=== PATIENT | female | born 1955 ===

== ENCOUNTER → 2016-09-25 | Outpatient (CLI) | payer OTHER | LOC: COL.VAS 13:54 | DX: R00.2 Palpitations (principal); R94.31 Abnormal electrocardiogram [ECG] [EKG]; R07.89 Other chest pain; R60.0 Localized edema ==

== ENCOUNTER 2023-09-16 22:44 | Emergency (ER) | payer MEDICARE, OTHER ==
[~2023-09-16] VITALS: Ht 170.2 cm; Wt 101.8 kg
[~2023-09-16 22:44] MED LIST: ASPIRIN 81M81 MG/TA2 PO; B-12 500 MCG PO; MASON NATURAL2000 IU PO; NITRO-DUR0.2 MG/PAT TD; PRINIVIL2.5 MG PO; SYNTHROID0.075 MG/T PO; TOPROL XL 50MG50 MG PO; VITAMIN C500 MG PO
[2023-09-16 23:08] LABS: BASO % 0.4 % (0.0-2.0); EOS # 0.2 K/mm3 (0.0-0.7); EOS % 2.6 % (0.0-4.0); GRAN # 4.4 K/mm3 (1.4-6.5); GRAN % 62.2 % (42.2-75.2); HEMATOCRIT 45.4 % (37.0-47.0); HEMOGLOBIN 14.9 g/dl (12.5-16.0); LYMPH # 1.8 K/mm3 (1.2-3.4); LYMPH % 25.6 % (20.0-51.0); MEAN CELL VOLUME 95 fl (80.0-100.0); MEAN CORPUSCULAR HEMOGLOBIN 31 pg (27-31); MEAN CORPUSCULAR HGB CONC 33 g/dl (33.0-37.0); MEAN PLATELET VOLUME 10.1 fl (7.4-10.4); MONO # 0.6 K/mm3 (0.1-0.6); MONO % 9.1 % (1.7-9.3); PLATELET COUNT 196 K/mm3 (130-400); RED BLOOD COUNT 4.77 M/mm3 (4.10-5.30); REDCELL DISTRIBUTION WIDTH-CV 14.2 % (11.5-14.5)
[2023-09-16 23:23] LABS: ALANINE AMINOTRANSFERASE 16 U/L (0-55); ALBUMIN 3.8 g/dL (3.4-4.8); ALKALINE PHOSPHATASE 103 U/L (40-150); ANION GAP 12 mmol/L (7-16); AST,SGOT 21 U/L (5-34); BILIRUBIN,TOTAL 0.4 mg/dL (0.2-1.2); BLOOD UREA NITROGEN 26 mg/dL (10-20); C-REACTIVE PROTEIN 0.43 mg/dL (0.00-0.50); CALCIUM 9.7 mg/dL (8.4-10.2); CHLORIDE 107 mEq/L (98-107); CREATININE, serum 1.15 mg/dL (0.57-1.11); GLUCOSE 105 mg/dL (70-99); MAGNESIUM 2.2 mg/dL (1.6-2.6); POTASSIUM 4.2 mEq/L (3.5-4.5); SODIUM 142 mEq/L (136-145); TOTAL PROTEIN 7.4 g/dl (6.2-8.1)
[2023-09-16 23:29] LABS: TROPONIN-I < 0.010 ng/mL (0.00-0.033)
[2023-09-16 23:41] LABS: PROTHROMBIN TIME 11.4 SECONDS (9.7-12.8)
[2023-09-16 23:56] LABS: PARTIAL THROMBOPLASTIN TIME 33.8 SECONDS (26.0-37.0)
[2023-09-17 01:59] VITALS: BP 129/75; PULSE 63; TEMP 98.4
== END 2023-09-17 01:59 | disposition home or self-care (01) ==
LOC: COL.ER 22:44
PROVIDERS: Emergency Medicine
DX: R07.89 Other chest pain (principal); R00.2 Palpitations